=== PATIENT | male | born 2005 | race Hispanic/Latino ===

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

== ENCOUNTER 2025-11-06 19:07 | Emergency (ER) | payer OTHER, SELFPAY ==
[2025-11-06] MEDS ORDERED: Naproxen 500 MG TAB ONE (20:49)
[2025-11-06] MEDS ORDERED: Amoxicillin/Potassium Clav 500 MG TAB ONE (20:55)
== END 2025-11-06 20:58 | disposition home or self-care (01) ==
LOC: NAV ERS 19:07
DX: J02.0 Streptococcal pharyngitis (principal); I88.8 Other nonspecific lymphadenitis
CPT/HCPCS: 87430; 99283